=== PATIENT | female | born 1945 | race Caucasian/White ===

== ENCOUNTER → 2016-03-12 | Outpatient (CLI) | payer OTHER ==
--- NOTE | 2016-03-17 15:23 | MA ---
Screening Digital Mammogram With iCAD Analysis Reason for Examination: Routine screening. Breast parenchymal density: Type C; Heterogeneously dense. . Technique: Four views of each breast are obtained including CC and oblique lateral Christian (implant di splaced) and non-Christian (implant not displaced) views. Images were reviewed using the iCAD computer a ided detection system. Comparison: July 2013, July 2012, June 2011.. Findings: Breast implants are in place bilaterally. iCAD is reviewed. No suspicious areas are identif ied. There has been no significant change in the appearance of either breast. Breast implants diminis h the sensitivity of mammography. Impression: Negative mammogram. BI-RADS 1. Recommendation: Routine screening is recommended in one year as long as physical examination is negat gary. [facility] will send a result letter to the patient. Negative mammography should not preclude additional workup of a clinically suspicious finding. The patient's information is entered into a reminder system with a target due date for her next mammo gram.
== END ==
LOC: FIMAGING 14:17
DX: Z12.31 Encounter for screening mammogram for malignant neoplasm of breast (principal)
CPT/HCPCS: G0202

== ENCOUNTER → 2017-03-31 | Outpatient (CLI) | payer OTHER | LOC: FIMAGING 14:08 | PROVIDERS: ATTEND Internal Medicine | DX: Z12.31 Encounter for screening mammogram for malignant neoplasm of breast (principal) ==

== ENCOUNTER → 2017-04-06 | Outpatient (CLI) | payer OTHER | LOC: FIMAGING 13:20 | PROVIDERS: ATTEND Internal Medicine | DX: R92.8 Other abnormal and inconclusive findings on diagnostic imaging of breast (principal) ==

== ENCOUNTER → 2017-04-20 | Day surgery (SDC) | payer OTHER ==
[~2017-04-20] MED LIST: BUPIVACAINE 0.5% 10 ML SDV ONE; LIDOCAINE 1% 300 MG/30 ML SDV ONE; THROMBIN (BOVINE) 5,000 UNIT VIAL TP ONE
== END | disposition home or self-care (01) ==
LOC: FIMAGING 07:29
PROVIDERS: ATTEND Internal Medicine
PROC: 0HBT3ZX Excision of Right Breast, Percutaneous Approach, Diagnostic (ICD-10-PCS; principal; 2017-04-20)
PROC: BH00ZZZ Plain Radiography of Right Breast (ICD-10-PCS; principal; 2017-04-20)
DX: C50.911 Malignant neoplasm of unspecified site of right female breast (principal); R92.0 Mammographic microcalcification found on diagnostic imaging of breast; Z17.0 Estrogen receptor positive status [ER+]

== ENCOUNTER → 2017-05-19 | Outpatient (CLI) | payer OTHER | LOC: FIMAGING 13:36 | PROVIDERS: ATTEND Surgery | DX: N64.89 Other specified disorders of breast (principal) ==

== ENCOUNTER 2017-06-04 06:18 | Day surgery (SDC) | payer OTHER ==
[~2017-06-04 06:18] MED LIST changes: -BUPIVACAINE 0.5% 10 ML SDV ONE; +LIDOCAINE 1% 2 ML INJ ID PRN; -LIDOCAINE 1% 300 MG/30 ML SDV ONE; +LR 1,000 ML IV ONE; -THROMBIN (BOVINE) 5,000 UNIT VIAL TP ONE; +ceFAZolin 2 GM/SWFI 2 GM/20 ML SYR IVP ONE
[2017-06-04] MEDS ORDERED: LIDOCAINE 1% 300 MG/30 ML SDV ONE ×2 (07:27→10:39)
[2017-06-04] MEDS ORDERED: LIDOCAINE 1% 5 ML SDV ONE (07:55)
[2017-06-04] MEDS ORDERED: NA BICARBONATE 50 MEQ/50 ML VIAL ONE ×3 (07:55→10:42)
[2017-06-04] MEDS ORDERED: GADOBUTROL 10 ML VIAL IVP ONE ×2 (07:55→08:00)
[2017-06-04] MEDS ORDERED: AVITENE POWDER 1 GM JAR TP ONE (10:40)
[2017-06-04] MEDS ORDERED: BUPIVACAINE 0.25% 30 ML SDV ONE (10:40)
[2017-06-04] MEDS ORDERED: MIDAZOLAM 2 MG/2 ML VIAL IVP ONE (11:31)
[2017-06-04] MEDS ORDERED: ALBUTEROL 3 ML DEYVIAL IH PRN (11:32)
[2017-06-04] MEDS ORDERED: HYDROmorphONE/DILAUDID 1 MG/ML INJ IVP PRN (11:32)
[2017-06-04] MEDS ORDERED: ACETAMINOPHEN 500 MG TAB PO PRN (11:32)
[2017-06-04] MEDS ORDERED: HYDROCODONE/APAP 5/325 TAB PO PRN (11:32)
[2017-06-04] MEDS ORDERED: ONDANSETRON 4 MG/2 ML VIAL IVP PRN (11:32)
[2017-06-04] MEDS ORDERED: DEXAMETHASONE 4 MG/ML VIAL IVP PRN (11:32)
[2017-06-04] MEDS ORDERED: NALOXONE HCL 0.4 MG/ML INJ IVP PRN (11:32)
[2017-06-04] MEDS ORDERED: oxyCODONE IR 5 MG TAB PO PRN (11:32)
--- NOTE | 2017-06-04 11:33 | PDANEPAE ---
ANE History of Present Illness Right Breast ANE Past Medical History - Cardiovascular History Hx Hypertension: Yes Hx Arrhythmias: No Hx Chest Pain: No Hx Coronary Artery / Peripheral Vascular Disease: No Hx CHF / Valvular Disease: No Hx Palpitations: No Cardiovascular History Comment: pcp monitors - Pulmonary History Hx COPD: No Hx Asthma/Reactive Airway Disease: No Hx Recent Upper Respiratory Infection: No Hx Oxygen in Use at Home: No Hx Sleep Apnea: No Sleep Apnea Screening Result - Last Documented: Negative - Neurologic History Hx Cerebrovascular Accident: No Hx Seizures: No Hx Dementia: No Neurologic History Comment: hx of SI joint fusion a year ago still has lots of sciatic pain. lydomingo makes her forgetful - Endocrine History Hx Diabetes: No - Renal History Hx Renal Disorders: No - Liver History Hx Hepatic Disorders: No - Neurological & Psychiatric Hx Hx Neurological and Psychiatric Disorders: Yes Neurological / Psychiatric History Comment: slight depression d/t pain - Cancer History Hx Cancer: No - Congenital Disorder History Hx Congenital Disorders: No - GI History Hx Gastrointestinal Disorders: No - Other Health History Other Health History: none - Chronic Pain History Chronic Pain: Yes (sciatic pain) - Surgical History Prior Surgeries: s1 fusion 05/26/2016. left elbow surgery. fx'd femur repair. hysterectomy. l5-s1 lami. breast augmentation. face lift ANE Review of Systems Review of Systems: - Exercise capacity METS (RN): 4 METS ANE Patient History - Allergies Allergies/Adverse Reactions: Sulfa (Sulfonamide Antibiotics) Allergy (Verified 05/28/17 12:27) breaks out in hives - Home Medications Home Medications: Atorvastatin Calcium 05/28/17 [Last Taken 1 Day Ago ~06/03/17] Herbals/Supplements -Info Only 05/28/17 [Last Taken 05/28/17] Hydrochlorothiazide DAILY 05/28/17 [Last Taken 1 Day Ago ~06/03/17] Lyrica 150mg (*) BID 05/28/17 [Last Taken 06/04/17 05:00] - NPO status NPO Since - Liquids (Date): 06/03/17 NPO Since - Liquids (Time): 19:00 NPO Since - Solids (Date): 06/03/17 NPO Since - Solids (Time): 18:30 - Smoking Hx Smoking Status: Former smoker - Family Anes Hx Family Hx Anesthesia Complications: none ANE Labs/Vital Signs - Vital Signs Blood Pressure: 148/84 Heart Rate: 66 Respiratory Rate: 18 O2 Sat (%): 95 Height: 167.64 cm Weight: 56.699 kg ANE Physical Exam - Airway Neck exam: FROM Mallampati Score: Class 2 Mouth exam: normal dental/mouth exam - Pulmonary Pulmonary: clear to auscultation - Cardiovascular Cardiovascular: regular rate and rhythym - ASA Status ASA Status: II ANE Anesthesia Plan Anesthesia Plan: GA w LMA
[2017-06-04] MEDS ORDERED: fentaNYL 100 MCG/2 ML INJ ONE ×3 (11:47→14:09)
[2017-06-04] MEDS ORDERED: PROPOFOL/EMULSION 500 MG/50 ML BOTTLE IV ONE (11:47)
[2017-06-04] MEDS ORDERED: DEXAMETHASONE 4 MG/ML VIAL ONE (11:51)
[2017-06-04] MEDS ORDERED: RANITIDINE 50 MG/2 ML VIAL ONE (11:51)
[2017-06-04] MEDS ORDERED: ONDANSETRON 4 MG/2 ML VIAL ONE (11:51)
[2017-06-04] MEDS ORDERED: epHEDrine SULFATE 10 MG/ML SYR ONE (12:10)
[2017-06-04] MEDS ORDERED: PHENYLEPHRINE HCL 100 MCG/ML SYR ONE (12:36)
[2017-06-04] MEDS ORDERED: PROPOFOL 200 MG/20 ML VIAL ONE (13:15)
--- NOTE | 2017-06-04 13:51 | POSTANESTH ---
Post Anesthetic Evaluation Cardiovascular Status: Normal, Stable Respiratory Status: Similar to Pre-op Cond. Level of Consciousness/Mental Status: Can Participate in Eval, Mildly Sleepy, Arousable Pain Control: Adequate, Prn Tx Ordered Nausea/Vomiting Control: Adequate, Prn Tx Ordered Complications Possibly Related to Anesthesia: None Noted
--- NOTE | 2017-06-04 14:09 | POSTOPPROG ---
Post Op Note Date of Operation: 06/04/17 Surgeon: Cheko Spain (, FACs) Power Manager: Lynnette Payne RN-FA Anesthesiologist: Michael Bowser DO Anesthesia: GET(General Endotracheal) Pre-op Diagnosis: right breast cancer, left breast abnormal MRi enhancement Post-op Diagnosis: same Procedure: left breast biopsy, right partial mastectomy/SLN bx Findings: sentinel nodes on right neg./right breast mammo confirms calcs Inf/Abcess present in the surg proc area at time of surgery?: No EBL: Minimal (25 ml) Specimen(s): 1. left breast MRI guided needle loc/excisional biopsy-inked 2. right partial mastectomy-inked 3. right axillary sentinel nodes (total 8 nodes in 2 specimens) without evidence of metastasis on frozen section
[2017-06-04] MEDS: fentaNYL 100 MCG/2 ML INJ IVP PRN ×3 (14:10→14:20)
[2017-06-04] MEDS ORDERED: HYDROmorphONE/DILAUDID 4 MG TAB PO PRN (14:11)
[2017-06-04] MEDS ORDERED: HYDROmorphONE/DILAUDID 2 MG/ML INJ ONE (14:31)
[2017-06-04] MEDS: HYDROmorphONE/DILAUDID 2 MG/ML INJ IVP PRN ×2 (14:36→14:47)
[2017-06-04] MEDS ORDERED: HYDROmorphONE/DILAUDID 2 MG TAB PO PRN (14:39)
[2017-06-04] MEDS ORDERED: HYDROmorphONE/DILAUDID 2 MG TAB ONE (14:45)
[2017-06-04 15:55] VITALS: BP 126/78
--- NOTE | 2017-06-04 19:23 | GOP ---
[f rep st] OPERATIVE REPORT DATE OF OPERATION: 06/04/2017 SURGEON: Cheko Spain MD, FACS OUT PATIENT THERAPIST: Lynnette Payne RN-FA. ANESTHESIA: General by laryngeal mask. ANESTHESIOLOGIST: Michael Bowser D.O. PREOPERATIVE DIAGNOSIS: 1. Right breast carcinoma. 2. Left breast abnormal enhancement on MRI. POSTOPERATIVE DIAGNOSIS: PROCEDURE PERFORMED: 1. Left breast MRI-guided needle localization followed by excisional biopsy. 2. Right partial mastectomy following mammogram-guided needle localization and sentinel lymph node mapping with superficial axillary lymph node dissection. 3. Immediate reconstruction with adjacent tissue transfer. FINDINGS: 1. Left breast subareolar tissue localized by preoperative MRI needle localization, excised and submitted for permanent section, inked for orientation. 2. Martin nodes x2 submitted for frozen section with no evidence of metastatic malignancy, total of 8 lymph nodes within 2 specimens. 3. Left partial mastectomy specimen submitted for specimen mammogram showing residual calcifications confirmed within the specimen. Tissue inked for orientation and submitted for permanent section. ESTIMATED BLOOD LOSS: 10 cc. DESCRIPTION OF PROCEDURE: After informed consent was obtained, the patient was brought to the operating room and placed under general anesthesia. Both breasts and chest wall were prepped and draped in the usual fashion. Patient had wires exiting the breast on the left side lateral to the areola, directed medially and superiorly, and on the right side, directed laterally from the medial edge of the areola deep and cephalad. Before proceeding, a time-out and identification of the patient was performed. She received 2 g of Ancef perioperatively. The left breast biopsy was first performed as follows. The areolar border was marked with a marking pen, infiltrated with a mixture of 1% lidocaine and 0.25% Marcaine, incised at the areolar border and dissection carried through the skin and subcutaneous tissue. The wire was intercepted into the incision and used to guide dissection into the deep subareolar tissue. This was excised down to the pectoralis muscle and in all directions for 1 to 1.5 cm. Specimen was removed from the field and appeared unremarkable to the naked eye. The tissue was inked for orientation with a margin-marker kit, and submitted for permanent section. Hemostasis was secured within the cavity. Subcutaneous tissues were closed with 3-0 Monocryl suture. Skin was closed with 4-0 Monocryl suture in a subcuticular fashion. Turning to the right side, the axilla was interrogated with the Neoprobe and points of maximum intensity were marked on the skin with a marking pen. The skin was infiltrated with 0.25 % Marcaine and 1% lidocaine, incised transversely, and dissection carried out through the skin and subcutaneous tissues and superficial axillary fascia. The deep axilla was carefully dissected using the Neoprobe to guide dissection. Two areas of increased activity were identified, associated with ink-stained nodes in the superficial group and normal pinkish-kuhn nodes in the deeper group. Each of these was isolated from the surrounding fibrofatty tissue of the axilla. Hemostasis was secured with Hemoclips and the specimens removed from the field. Intercostal brachial nerves were preserved in the course of dissection. These two sentinel nodes contained more than 1 node each, and these were submitted for both frozen and permanent section. Dr. Kerr reported no evidence of metastatic malignancy subsequently. Hemostasis was secured within the cavity. Subcutaneous tissues were approximated with 3-0 Monocryl suture. Skin was closed with 4-0 Monocryl suture in a subcuticular fashion. Next, the partial mastectomy was performed as follows. The right breast needle was at the edge of the areolar border, directed cephalad and posterior. The skin at the areolar border was infiltrated with 0.25% Marcaine and 1% lidocaine, and incised with a scalpel. Dissection was carried out and the wire intercepted. The breast tissue around the shaft and tip of the wire was widely excised from the subareolar plane to the pectoralis muscle overlying her previously placed breast implant. The breast tissue was excised and submitted for permanent section after marking the margins with a margin-marker kit. There was no suspicious-appearing tissue grossly to the naked eye. The specimen was submitted for specimen mammogram which confirmed the residual calcifications within the specimen. Tissue was then submitted to Pathology for permanent section. Adjacent tissue transfer was performed on the right side to avoid cosmetic defect, as follows. The breast tissue was mobilized for several centimeters cephalad, medially, and inferiorly to the lumpectomy cavity. This tissue was used to cantilever and close off the lumpectomy space, approximating the tissue with interrupted 3-0 Vicryl sutures. Subsequently, the subareolar and subcutaneous tissues were approximated with 3 -0 Monocryl suture and the skin closed with 4-0 Monocryl suture in a subcuticular fashion for the skin. Mastisol and Steri-Strips were applied. Needle, sponge, and instrument count were correct. COMPLICATIONS: None. /[id number]/MODL MTDD
[2017-06-04] MEDS ORDERED: SENNOSIDES/DOCUSATE SODIUM TAB PO SCH (21:00)
== END 2017-06-04 15:56 | disposition home or self-care (01) ==
LOC: FIMAGING 06:18
PROVIDERS: ATTEND Surgery
DX: D05.11 Intraductal carcinoma in situ of right breast (principal); D24.2 Benign neoplasm of left breast; D36.0 Benign neoplasm of lymph nodes; C50.111 Malignant neoplasm of central portion of right female breast; Z17.0 Estrogen receptor positive status [ER+]; R92.0 Mammographic microcalcification found on diagnostic imaging of breast; E78.5 Hyperlipidemia, unspecified; E55.9 Vitamin D deficiency, unspecified; M51.36 Other intervertebral disc degeneration, lumbar region; I10 Essential (primary) hypertension; Z87.891 Personal history of nicotine dependence; Z98.1 Arthrodesis status
CPT/HCPCS: 14000; 19125; 19126; 19285; 19287; 38525; 76098; 78195; A9520; A9585; J0690; J1100; J1170; J2250; J2370; J2405; J2704; J2780; J3010

== ENCOUNTER 2017-11-30 15:16 | Emergency (ER) | payer OTHER ==
--- NOTE | 2017-11-30 15:52 | EDPHY ---
H & P Stated Complaint: sweats, SOB Time Seen by Provider: 11/30/17 15:26 HPI/ROS: CHIEF COMPLAINT: Frequent sweats, short of breath HISTORY OF PRESENT ILLNESS: This is a 72-year-old female with a history of right breast cancer status post surgery and radiation treatment, now cancer free. She is taking an anti hormonal agent, as her cancer was estrogen receptor positive. She presents today concerned about frequent profuse sweating episodes. The began night before last and kept her up all night. She states that every 3-5 minutes she would break out in a head to toe sweat, dripping wet. She takes Celexa for menopausal hot flashes and notes that after she takes it in the morning these sweating events seemed to calm down but as the day progresses they increase in frequency and severity. Today will be the 2nd day that she has experienced them. They do not feel like menopausal hot flashes. She has not had fever. She also notes that she is feeling short of breath today and that she is dyspneic when she exerts herself. She is normally active. Her states that she has had a cough for the past 2 days but she has not coughed today. She denies chest pain. She has not had calf swelling or pain. No personal or family history of venous thromboembolic disease. She denies sore throat or myalgias. She has had an influenza vaccination this year. She is also concerned about a red area and her right eye that she noticed this morning. Because of her family history of intracranial aneurysm she is concerned that this might be related to a brain aneurysm. She denies headache, confusion, new numbness, new weakness, difficulty with speech. She has not had eye pain, foreign body sensation, itching, watering or drainage from the eye. REVIEW OF SYSTEMS: A ten system review of systems was performed and is negative with the exception of the items mentioned in the HPI. Past medical history: 1. Breast cancer status post surgery and radiation 2. Hypertension 3. Sciatica Past surgical history: 1. Bilateral breast implants 2. Surgery for right breast cancer Family history: Her father had type 2 diabetes and her mother had hypertension. Her mother also had a brain aneurysm, as did 3 of her mother's sisters. Social history: She lives with her . She is retired, having worked as a building consultant for 25 years. She quit smoking at age 40. General Appearance: Alert. Vital signs reviewed. Initial blood pressure 115/ 82. Heart rate 107 at triage, low 80s at the time of my exam. Eyes: Pupils equal and round, no conjunctival injection, no discharge. Right eye with small subconjunctival hemorrhage. Anicteric. Optic discs are sharp bilaterally. ENT, Mouth: Mucous membranes are moist, no oropharyngeal erythema or edema. Neck: No lymphadenopathy, supple. Respiratory: Lungs are clear to auscultation; no wheezes, rales, or rhonchi. Cardiovascular: Regular rate and rhythm; no murmur, rub, or gallop. Gastrointestinal: Abdomen is soft and nontender, no masses or organomegaly, bowel sounds normal. Skin: Warm and dry, no rashes on exposed skin, normal color. Back: Nontender to palpation over the thoracolumbar spine. No CVAT. Extremities: No lower extremity edema, no calf tenderness or swelling. Neurological: Alert and oriented. Moving all four extremities easily and equally. Psychiatric: Normal affect. - Personal History Current Tetanus/Diphtheria Vaccine: Yes Current Tetanus Diphtheria and Acellular Pertussis (TDAP): Yes - Medical/Surgical History Hx Asthma: No Hx Chronic Respiratory Disease: No Hx Diabetes: No Hx Cardiac Disease: No Hx Renal Disease: No Hx Cirrhosis: No Hx Alcoholism: No Hx HIV/AIDS: No Hx Splenectomy or Spleen Trauma: No Other PMH: HTN, sciatica, - Social History Smoking Status: Former smoker Constitutional: Initial Vital Signs Temperature (C) 37.2 C 11/30/17 15:20 Heart Rate 107 H 11/30/17 15:20 Respiratory Rate 16 11/30/17 15:20 Blood Pressure 115/82 H 11/30/17 15:20 O2 Sat (%) 97 11/30/17 15:20 O2 Delivery Mode Room Air Allergies/Adverse Reactions: Sulfa (Sulfonamide Antibiotics) Allergy (Verified 11/30/17 15:20) breaks out in hives Home Medications: Medication Instructions Recorded Atorvastatin Calcium 05/28/17 Herbals/Supplements -Info Only 05/28/17 Hydrochlorothiazide DAILY 05/28/17 Lyrica 150mg (*) BID 05/28/17 HYDROmorphone HCL [Dilaudid 4 mg 4 mg PO Q3HRS PRN #30 tab 06/04/17 (*)] Medical Decision Making - Diagnostics Imaging Results: Imaging Impressions Chest X-Ray 11/30/17 15:45 Impression: Normal. No pneumonia or evidence for metastatic breast cancer. Chest/Thorax CTA 11/30/17 17:00 Impression: No evidence for pulmonary embolic disease or source for dyspnea identified. Results discussed with Dr. Alicia Brown at 5:30 PM. General information for patients regarding this examination can be found at [email or web address]. If you have questions or comments about this report, please contact me at (hospital) or [phone] (cell). ED Course/Re-evaluation: 72-year-old female with history of breast cancer presents initially with tachycardia complain of shortness of breath, raising the concern of PE. Perc score is 3, unable to rule out PE using the perc rule. D-dimer was mildly elevated at 0.62. Unfortunately, her creatinine is 1.2. I suspect dehydration and she agrees that she has not been drinking very well. She has no history of elevated creatinine. She notices shortness of breath with exertion today and normally leads an active life, walking at least 2 miles daily. She was ambulated in the emergency department wearing a pulse ox and after her 2nd lap around the department pulse ox dip to 88%. She decided to proceed with CT angiogram to assess for PE. This study was reported to me by Dr. Esteban as negative. No evidence of PE or other abnormality. Her heart rate has been normal since triage. Chest x-ray is normal. Etiology of her subjective dyspnea remains unknown. I have not found pneumonia or heart failure. I do not suspect ACS. Her other concern is of night sweats that she has been experiencing for the past 2 nights. They seem to be better during the day and she attributes this to the fact that she takes Celexa (for menopausal hot flashes) in the morning. She did not experience any episodes of diaphoresis while in the emergency department. Her blood sugar was somewhat low at 60. I think hypoglycemia as an explanation for her night sweats is unlikely but suggested that she try eating or drinking something sugary if she should awaken diaphoretic tonight. TSH is normal. I do not suspect infectious disease/TB. She understands that the etiology of her night sweats is unknown. She will follow up with her primary care provider. She also has a small subconjunctival hemorrhage. - Data Points Laboratory Results: Laboratory Results 11/30/17 15:49 11/30/17 15:49 11/30/17 11/30/17 11/30/17 15:49 15:49 15:49 WBC 7.25 10^3/uL 10^3/uL (3.80-9.50) RBC 4.57 10^6/uL 10^6/uL (4.18-5.33) Hgb 14.3 g/dL g/dL (12.6-16.3) Hct 41.6 % % (38.0-47.0) MCV 91.0 fL fL (81.5-99.8) MCH 31.3 pg pg (27.9-34.1) MCHC 34.4 g/dL g/dL (32.4-36.7) RDW 13.1 % % (11.5-15.2) Plt Count 311 10^3/uL 10^3/uL (150-400) MPV 10.5 fL fL (8.7-11.7) Neut % (Auto) 54.9 % % (39.3-74.2) Lymph % (Auto) 28.7 % % (15.0-45.0) Crenshaw % (Auto) 10.6 % % (4.5-13.0) Eos % (Auto) 4.4 % % (0.6-7.6) Baso % (Auto) 1.0 % % (0.3-1.7) Nucleat RBC Rel Count 0.0 % % (0.0-0.2) Absolute Neuts (auto) 3.98 10^3/uL 10^3/uL (1.70-6.50) Absolute Lymphs (auto) 2.08 10^3/uL 10^3/uL (1.00-3.00) Absolute Monos (auto) 0.77 10^3/uL 10^3/uL (0.30-0.80) Absolute Eos (auto) 0.32 10^3/uL 10^3/uL (0.03-0.40) Absolute Basos (auto) 0.07 10^3/uL 10^3/uL (0.02-0.10) Absolute Nucleated RBC 0.00 10^3/uL 10^3/uL (0-0.01) Immature Gran % 0.4 % % (0.0-1.1) Immature Gran # 0.03 10^3/uL 10^3/uL (0.00-0.10) D-Dimer 0.62 ug/mLFEU H ug/mLFEU (0.00-0.50) Sodium 140 mEq/L mEq/L (135-145) Potassium 3.9 mEq/L mEq/L (3.3-5.0) Chloride 103 mEq/L mEq/L (97-110) Carbon Dioxide 28 mEq/l mEq/l (22-31) Anion Gap 9 mEq/L mEq/L (8-16) BUN 26 mg/dL H mg/dL (7-23) Creatinine 1.2 mg/dL H mg/dL (0.6-1.0) Estimated GFR 44 Glucose 60 mg/dL L mg/dL (70-100) Calcium 10.8 mg/dL H mg/dL (8.5-10.4) Phosphorus 3.6 mg/dL mg/dL (2.5-4.5) TSH 1.070 uIU/mL uIU/mL (0.465-4.680) Medications Given: Discontinued Medications Sodium Chloride (Ns) 1,000 mls @ 0 mls/hr IV EDNOW ONE; Wide Open PRN Reason: Protocol Stop: 11/30/17 17:02 Last Admin: 11/30/17 17:03 Dose: 1,000 mls Departure - Departure Disposition: Home, Routine, Self-Care Clinical Impression: Unexplained night sweats, Short of breath on exertion Condition: Good Instructions: Shortness of Breath (ED) Additional Instructions: As you know, it is not clear what is causing you to have the night sweats and the shortness of breath. The CT scan angiogram of you chest did not show a blood clot, or any other abnormality. Please see Dr. Pratima Means in the next couple of days. Let her know that your kidney function was not normal today. You received 1-1/2 L of IV fluid following your CT scan. You should continue to drink fluid at home. If you wake up with night sweats tonight, try drinking something sugary such as juice. I do not really think that this is hypoglycemia but it is worth a try. Referrals: Pratima Means MD [Primary Care Provider] - As per Instructions
[2017-11-30 16:11] LABS: PLATELET COUNT 311 10^3/uL (150-400)
[2017-11-30] MEDS ORDERED: NS 1,000 ML IV ONE (17:01)
[2017-11-30] MEDS ORDERED: IOPAMIDOL (ISOVUE 370) 100 ML BTL IV ONE (17:05)
[2017-11-30 17:51] VITALS: BP 122/78
== END 2017-11-30 18:53 | disposition home or self-care (01) ==
DX: R61 Generalized hyperhidrosis (principal); R06.02 Shortness of breath; E86.9 Volume depletion, unspecified; Z87.891 Personal history of nicotine dependence; Z85.3 Personal history of malignant neoplasm of breast
CPT/HCPCS: 71046; 71275; 96360; 99285; Q9967

== ENCOUNTER → 2018-03-07 | Outpatient (CLI) | payer OTHER | LOC: FIMAGING 11:52 | PROVIDERS: ATTEND Orthopaedic Surgery | DX: M17.12 Unilateral primary osteoarthritis, left knee (principal) ==

== ENCOUNTER 2018-03-14 07:15 | Observation (INO) | payer OTHER ==
--- NOTE | 2018-03-12 19:57 | GHP ---
DATE OF ADMISSION: 03/14/2018 DATE OF PLANNED ADMISSION: 03/14/2018. ADMISSION DIAGNOSIS: Patellofemoral osteoarthritis. PLANNED PROCEDURE: Patellofemoral arthroplasty. HISTORY OF PRESENT ILLNESS: The patient is a 72-year-old female who had a previous injury to the kne e, requiring surgical fixation with distal femoral fracture in 2010. She has gone on to develop hodges llofemoral arthritis. This has been refractory to conservative treatments including bracing, activit y modification, viscosupplementation injections, cortisone injections, and anti-inflammatory medicine s. She continues to have pain and limited function. Decision was made to proceed with a patellofemo ral arthroplasty. PRIOR MEDICAL HISTORY: Arthritis and high cholesterol. PAST SURGICAL HISTORY: Open reduction internal fixation to femur, low back surgery in 2013. MEDICATIONS: Bupropion, atorvastatin, citalopram, hydrochlorothiazide, Lipitor, Lyrica, meloxicam. ALLERGIES: Sulfa antibiotics give her hives. SOCIAL HISTORY: Former smoker. Occasional alcohol use. [place] here [place] town. REVIEW OF SYSTEMS: No shortness of breath or chest pain. Otherwise, review of systems is unremarkab le. PHYSICAL EXAM: GENERAL APPEARANCE: Healthy-appearing 72-year-old female. VITAL SIGNS: She is 5 fe et 6 inches tall, weighs 118 pounds. Blood pressure 112/68, heart rate 75, respiratory rate 14 on ro om air. Alert and oriented x3. HEENT: Normocephalic, atraumatic. Extraocular muscles are intact. NECK: Supple. There is no lymphadenopathy. No JVD. CHEST: Clear to auscultation. CARDIOVASCULA R: Regular rate and rhythm. ABDOMEN: Soft, nontender, nondistended. There is no hepatosplenomegal y. EXTREMITIES: Left knee shows no effusion. Lateral tilt of the patella. There is patellofemoral crepitus with flexion and extension. Alignment of the knee is otherwise straight. She has full ext ension and flexes to 140 degrees. Knee is stable to varus and valgus stress testing. 1+ Tasneem wit h a firm endpoint. Negative posterior drawer. Calf is soft, 5/5 ankle dorsiflexion, plantarflexion strength, 2+ dorsalis pedis posterior tibial pulses. IMAGING DATA: Plain imaging CT scan showed moderate to severe patellofemoral arthritis. Only mild t hinning of the cartilage was noted in the medial and lateral compartments. ASSESSMENT: Moderate to severe patellofemoral arthritis, failed conservative management. PLAN: I recommend proceeding with patellofemoral arthroplasty. Risks and benefits including possibl e need for revision surgery to a total knee, infection, blood clots were all discussed. She understa nds these risks and wishes to proceed. Will plan on surgery Wednesday at [facility]. Pre operative paperwork was completed. /[id number]/MODL
[2018-03-14] MEDS ORDERED: LR 1,000 ML IV ONE (07:33)
[2018-03-14] MEDS ORDERED: ceFAZolin 2 GM/DEXTROSE 100 ML IV ONE (07:33)
[2018-03-14] MEDS ORDERED: BUPIVACAINE/EPI 0.5% 30 ML SDV ONE (07:36)
[2018-03-14] MEDS ORDERED: ceFAZolin 1 GM/5 ML SYR ONE (07:36)
--- NOTE | 2018-03-14 09:07 | PDHPUP ---
History & Physical Update H&P update statement: This history and physical update is based on an assessment of the patient which was completed after admission or registration (within 24 hours), but prior to the surgery/procedure. H&P update: H&P reviewed & patient examined, no change in patient's condition since H&P completed
[2018-03-14] MEDS ORDERED: MIDAZOLAM 2 MG/2 ML VIAL IVP ONE (09:30)
--- NOTE | 2018-03-14 09:30 | PDANEPAE ---
ANE History of Present Illness OA here for L partial knee ANE Past Medical History - Cardiovascular History Hx Hypertension: Yes Hx Arrhythmias: No Hx Chest Pain: No Hx Coronary Artery / Peripheral Vascular Disease: No Hx CHF / Valvular Disease: No Hx Palpitations: No Cardiovascular History Comment: pcp monitors - Pulmonary History Hx COPD: No Hx Asthma/Reactive Airway Disease: No Hx Recent Upper Respiratory Infection: No Hx Oxygen in Use at Home: No Hx Sleep Apnea: No Sleep Apnea Screening Result - Last Documented: Positive - Neurologic History Hx Cerebrovascular Accident: No Hx Seizures: No Hx Dementia: No Neurologic History Comment: hx of SI joint fusion a year ago still has lots of sciatic pain. sarah makes her forgetful - Endocrine History Hx Diabetes: No - Renal History Hx Renal Disorders: No - Liver History Hx Hepatic Disorders: No Hepatic History Comment: elevated ast,alt - Neurological & Psychiatric Hx Hx Neurological and Psychiatric Disorders: Yes Neurological / Psychiatric History Comment: slight depression d/t pain - Cancer History Hx Cancer: No Cancer History Comment: breast CA - Congenital Disorder History Hx Congenital Disorders: No - GI History Hx Gastrointestinal Disorders: No - Other Health History Other Health History: none - Chronic Pain History Chronic Pain: Yes (sciatic pain) - Surgical History Prior Surgeries: s1 fusion 05/26/2016. left elbow surgery. fx'd femur repair. hysterectomy. l5-s1 lami. breast augmentation. face lift ANE Review of Systems Review of Systems: - Exercise capacity METS (RN): 4 METS ANE Patient History - Allergies Allergies/Adverse Reactions: Sulfa (Sulfonamide Antibiotics) Allergy (Verified 03/09/18 12:14) breaks out in hives - Home Medications Home Medications: Atorvastatin Calcium [Lipitor 10 mg (*)] 10 mg PO DAILY #0 05/28/17 [Last Taken 03/13/18] Hydrochlorothiazide [HCTZ (*)] 25 mg PO DAILY #0 05/28/17 [Last Taken 03/13/18] Pregabalin [Lyrica 150mg (*)] 150 mg PO BID #0 05/28/17 [Last Taken 03/13/18] Citalopram [CeleXA] 20 mg PO BID 03/03/18 [Last Taken 03/12/18] Diclofenac Potassium 50 mg PO DAILY 03/03/18 [Last Taken 03/12/18] Diclofenac Sodium 1% [Voltaren Gel (*)] 1 maxwell TP DAILY PRN 03/03/18 [Last Taken 2 Months Ago ~01/12/18] Glucosamine Sulfate [Glucosamine Sulfate 500 MG (*)] 500 mg PO DAILY 03/03/18 [ Last Taken 03/13/18] Letrozole [Femara 2.5 mg (*)] 2.5 mg PO DAILY 03/03/18 [Last Taken 03/13/18] Orphenadrine Citrate [Norflex 100 mg (*)] 100 mg PO BID 03/03/18 [Last Taken ] buPROPion XL [Wellbutrin Xl] 150 mg PO DAILY 03/03/18 [Last Taken 03/13/18] - NPO status NPO Status: no food or drink >8 hours NPO Since - Liquids (Date): 03/13/18 NPO Since - Liquids (Time): 19:00 NPO Since - Solids (Date): 03/13/18 NPO Since - Solids (Time): 19:00 - Anes Hx Anes Hx: no prior problems - Smoking Hx Smoking Status: Former smoker - Alcohol Use Alcohol Use: None - Family Anes Hx Family Anes Hx: none Family Hx Anesthesia Complications: none ANE Labs/Vital Signs - Vital Signs Blood Pressure: 134/83 Heart Rate: 79 Respiratory Rate: 14 O2 Sat (%): 93 Height: 162.56 cm Weight: 58.967 kg ANE Physical Exam - Airway Neck exam: FROM Mallampati Score: Class 2 Mouth exam: normal dental/mouth exam - Pulmonary Pulmonary: no respiratory distress, clear to auscultation - Cardiovascular Cardiovascular: regular rate and rhythym, no murmur, rub, or gallop - ASA Status ASA Status: II ANE Anesthesia Plan Anesthesia Plan: GA with mask, spinal Regional Anesthesia: adductor canal FNB
[2018-03-14] MEDS ORDERED: MIDAZOLAM 2 MG/2 ML VIAL ONE (09:36)
[2018-03-14] MEDS ORDERED: PROPOFOL/EMULSION 500 MG/50 ML BOTTLE IV ONE (09:37)
[2018-03-14] MEDS ORDERED: diphenhydrAMINE 25 MG CAP PO PRN (11:10)
[2018-03-14] MEDS ORDERED: MAGNESIUM HYDROXIDE 30 ML UDCUP PO PRN (11:10)
[2018-03-14] MEDS ORDERED: TEMAZEPAM 15 MG CAP PO PRN (11:10)
[2018-03-14] MEDS ORDERED: POLYETHYLENE GLYCOL 3350 17 GM PKT PO PRN (11:10)
[2018-03-14] MEDS ORDERED: LACTULOSE 20 GM/30 ML UDCUP PO PRN (11:10)
[2018-03-14] MEDS ORDERED: PROMETHAZINE HCL 25 MG/ML INJ IVP PRN (11:10)
[2018-03-14] MEDS ORDERED: DIPHENOXYLATE/ATROPINE LOMOTIL 1 TAB PO PRN (11:10)
[2018-03-14] MEDS ORDERED: CYCLOBENZAPRINE 10 MG TAB PO PRN (11:10)
[2018-03-14] MEDS ORDERED: PROMETHAZINE HCL 25 MG SUPPR PR PRN (11:10)
[2018-03-14] MEDS ORDERED: BISACODYL 10 MG SUPP PR PRN (11:10)
--- NOTE | 2018-03-14 11:10 | POSTOPPROG ---
Post Op Note Date of Operation: 03/14/18 Surgeon: Jay Holly Transmission Superintendent: Dorcas Burton PA-C Anesthesiologist: Rolly Anesthesia: GET(General Endotracheal), Spinal Pre-op Diagnosis: Left knee patellofemoral joint osteoarthritis Post-op Diagnosis: Left knee patellofemoral joint osteoarhtritis Procedure: Left knee patellofemoral joint arthroplasty with JAM assist Inf/Abcess present in the surg proc area at time of surgery?: No Depth: Deep Incisional (Fascial) EBL: Minimal
[2018-03-14] MEDS ORDERED: LR 1,000 ML IV SCH (11:30)
--- NOTE | 2018-03-14 12:00 | GOP ---
DATE OF OPERATION: 03/14/2018 SURGEON: Jay Holly MD STEAM BOILER FIREMAN: Dorcas Burton PA-C ANESTHESIA: Spinal. ANESTHESIOLOGIST: Dr. Harrison. PREOPERATIVE DIAGNOSIS: Patellofemoral arthritis. POSTOPERATIVE DIAGNOSIS: Patellofemoral arthritis. PROCEDURE PERFORMED: Left patellofemoral arthroplasty using Jonathan assist. FINDINGS: INDICATIONS: The patient has had longstanding bilateral knee pain, has failed conservative managemen t, including injections, oral anti-inflammatory medicines. Imaging showed severe patellofemoral arth ritis. Decision was made to proceed with patellofemoral arthroplasty. DESCRIPTION OF PROCEDURE: After appropriate informed consent was obtained, the patient was taken to the operating room, placed supine on the operating table. Time-out was performed. Patient was iden tified and correct site was identified. She received 2 g of Ancef preoperatively. Following a spina l anesthetic, she was positioned on the OR table. All bony prominences well padded. Left lower extr emity was prepped and draped in usual sterile fashion. Using the [facility] leg tavares, the knee was flexed slightly. I made a standard midline incision with a medial parapatellar arthrotomy and everted the patella. Patella measured 23 mm thick. We resected 10 mm off in a freehand technique. This sized to a size 32 and we drilled our lug holes. We then d rilled our 2 femoral pins for the femoral array, placed our check point on the medial femoral condyle and then synched the knee position with the MAKOplasty robot. We then mapped the distal femur and t hen brought in the robotic arm, and using the high-speed bur, we resected femoral bone and then trial ed a size 3, which gave us good positioning of the implant. The patella tracked nice and centrally w hen we put the trial implant on the patella. Wound was irrigated. We then mixed cement and cemented the femoral component and the patellar component. Excess cement was removed. We then irrigated the wound a final time, closed the extensor mechanism with 0 Vicryl. Superficial l teressa was closed with 0 Vicryl. Skin was closed with a Quill 3-0 stitch in a subcuticular fashion. S josi-Strips were applied to the skin. I did not instill any additional local anesthetic. Dr. Harrison did an adductor canal block at the end of the case. Sterile dressing was applied. Tourniquet was le t down. Total tourniquet time was 48 minutes at 250 mmHg. Dorcas Burton's assistance was required throughout the entire case. Patient was taken to the recovery ro in satisfactory condition. There were no immediate intraoperative complications. IMPLANTS USED: Size 3 femoral component and a 32 asymmetric patella, both cemented. COMPLICATIONS: None. DRAINS: None. /[id number]/MODL
[2018-03-14] MEDS: ACETAMINOPHEN 325 MG TAB PO SCH ×3 (12:44→23:56)
[2018-03-14] MEDS: ceFAZolin 2 GM/DEXTROSE 100 ML IV SCH ×2 (13:07→22:58)
[2018-03-14] MEDS ORDERED: HYDROmorphONE/DILAUDID 2 MG TAB PO PRN (13:35)
--- NOTE | 2018-03-14 13:35 | POSTANESTH ---
Post Anesthetic Evaluation Cardiovascular Status: Normal, Stable, Similar to Pre-Op Cond Respiratory Status: Normal, Stable, Similar to Pre-op Cond. Level of Consciousness/Mental Status: Can Participate in Eval, Alert and Oriented Pain Control: Adequate, Prn Tx Ordered Nausea/Vomiting Control: Adequate, Prn Tx Ordered Complications Possibly Related to Anesthesia: None Noted
[2018-03-14] MEDS: oxyCODONE IR 5 MG TAB PO PRN ×3 (16:21→23:58)
[2018-03-14] MEDS: SENNOSIDES/DOCUSATE SODIUM TAB PO SCH (20:17)
[2018-03-14] MEDS: CITALOPRAM 20 MG TAB PO SCH (20:17)
[2018-03-14] MEDS: FAMOTIDINE 20 MG TAB PO SCH (20:18)
[2018-03-14] MEDS: ASPIRIN 325 MG TAB PO SCH (20:35)
[2018-03-14] MEDS ORDERED: LETROZOLE 2.5 MG TAB PO SCH (21:00)
[2018-03-14] MEDS: PREGABALIN 150 MG CAP PO SCH (22:55)
[2018-03-14] MEDS: ORPHENADRINE CITRATE 100 MG EXT REL TAB PO SCH (22:55)
[2018-03-15] MEDS: oxyCODONE IR 5 MG TAB PO PRN ×4 (05:06→15:36)
[2018-03-15] MEDS: ACETAMINOPHEN 325 MG TAB PO SCH ×2 (05:06→12:34)
[2018-03-15] MEDS ORDERED: buPROPion XL 150 MG TAB PO SCH (09:00)
[2018-03-15] MEDS ORDERED: ATORVASTATIN CALCIUM 10 MG TAB PO SCH (09:00)
[2018-03-15] MEDS ORDERED: HYDROCHLOROTHIAZIDE 25 MG TAB PO SCH (09:00)
[2018-03-15] MEDS ORDERED: LETROZOLE 2.5 MG TAB PO SCH (09:00)
[2018-03-15] MEDS ORDERED: GLUCOSAMINE SULF 500 MG CAP PO SCH (09:00)
[2018-03-15] MEDS: FAMOTIDINE 20 MG TAB PO SCH (09:55)
[2018-03-15] MEDS: ASPIRIN 325 MG TAB PO SCH (09:55)
[2018-03-15] MEDS: PREGABALIN 150 MG CAP PO SCH (09:55)
[2018-03-15] MEDS: ORPHENADRINE CITRATE 100 MG EXT REL TAB PO SCH (09:55)
[2018-03-15] MEDS: CITALOPRAM 20 MG TAB PO SCH (09:55)
[2018-03-15] MEDS: SENNOSIDES/DOCUSATE SODIUM TAB PO SCH (09:55)
[2018-03-15 11:18] VITALS: BP 114/67
--- NOTE | 2018-03-15 12:25 | SOAPPROG ---
SOAP Progress Note Assessment/Plan: Assessment:POD#1 s/p Left patellofemoral joint arthroplasty with JAM assist- doing well. PE: Dressing clean and dry. Extensor mechanism intact. NV intact LLE. Calf soft to compression without pain. Plan: Plan to discharge today with outpatient PT at [facility]. WBAT LLE. Please change to Mepilex dressing prior to discharge. Prescription for pain medication in chart. Aspirin 325mg x 14 days post op. Follow up in 14 days for repeat evaluation and wound check. 03/15/18 12:23 Objective: Vital Signs Temp Pulse Resp BP Pulse Ox 36.7 C 72 16 114/67 96 03/15/18 11:16 03/15/18 11:16 03/15/18 11:16 03/15/18 11:16 03/15/18 11:16 Laboratory Results 03/15/18 04:42 03/14/18 03/15/18 03/16/18 05:59 05:59 05:59 Intake Total 1400 Output Total 550 Balance 850
--- NOTE | 2018-03-15 13:27 | ASMTCMCOM ---
CM Note CM Note Notes: Pt had planned OA of knee, resides with partner. PT rec outpatient. Pt medically stable for d/c. No CM d/c needs identified. Date Signed: 03/15/2018 01:26 PM Electronically Signed By:MARGARITA Steel
--- NOTE | 2018-03-15 13:28 | ASMTLACE ---
DARE Length of stay for Answers: 2 days current admission Acuity / Level of Answers: No Care: Did the patient have an inpatient admission? Comorbidities - select Answers: Opioid dependence all that apply / Chronic pain Other Notes: HTN # of Emergency department Answers: 1-2 visits in the last 6 months Social determinants Answers: Mental health diagnosis (anxiety, depression, pers onality disorders, etc.) Score: 11 Date Signed: 03/15/2018 01:27 PM Electronically Signed By:MARGARITA Steel
== END 2018-03-15 16:17 | disposition home or self-care (01) ==
LOC: INTOOBSV 07:15 → F3N 07:15
PROVIDERS: ADMIT Orthopaedic Surgery; ATTEND Orthopaedic Surgery
PROC: 0SRW0JZ Replacement of Left Knee Joint, Tibial Surface with Synthetic Substitute, Open Approach (ICD-10-PCS; principal; 2018-03-14 09:00)
PROC: 0QRF0JZ Replacement of Left Patella with Synthetic Substitute, Open Approach (ICD-10-PCS; principal; 2018-03-14 09:00)
PROC: 0SRU0JZ Replacement of Left Knee Joint, Femoral Surface with Synthetic Substitute, Open Approach (ICD-10-PCS; principal; 2018-03-14 09:00)
DX: M13.862 Other specified arthritis, left knee (principal)
CPT/HCPCS: 27442; 73560; 97116; 97161; 97165; 97530; C1713; C1776; J0690; J2250; J2704

== ENCOUNTER → 2018-05-19 | Outpatient (CLI) | payer OTHER | LOC: FIMAGING 10:59 | PROVIDERS: ATTEND Internal Medicine | DX: Z12.31 Encounter for screening mammogram for malignant neoplasm of breast (principal); Z85.3 Personal history of malignant neoplasm of breast ==

== ENCOUNTER → 2018-05-27 | Outpatient (CLI) | payer OTHER | LOC: FIMAGING 13:23 | PROVIDERS: ATTEND Internal Medicine | DX: N83.202 Unspecified ovarian cyst, left side (principal) ==